=== PATIENT | female | born 1960 | race Caucasian/White ===

== ENCOUNTER → 2020-10-22 14:39 | Outpatient (CLI) | payer MEDICAID, SELFPAY ==
--- NOTE | 2020-10-22 14:44 | CT_ITS ---
STUDY: CT RIGHT LOWER EXTREMITY REASON FOR EXAM: Right knee osteoarthritis, surgical planning. TECHNIQUE: Transaxial CT imaging of the lower extremity was performed. Coronal and sagittal images were reformatted. Individualized dose optimization techniques were used for this CT. COMPARISON: None. FINDINGS: Knee: There are marginal osteophytes and moderately severe joint space narrowing of the medial femorotibial compartment (coronal reconstructions 28, 29). There are marginal osteophytes of the lateral femorotibial compartment without joint space narrowing. There are marginal osteophytes of the patellofemoral compartment without joint space narrowing. There are mild degenerative changes of the proximal tibiofibular articulation (coronal reconstruction 45). There is a small joint effusion. The quadriceps tendon is grossly normal. The patellar tendon is grossly normal. Normal Hoffa''s fat pad. There is a small popliteal cyst (sagittal reconstructions 37-39). There is a small ossification at the medial aspect of the medial femorotibial compartment (coronal reconstruction 31). There is a small ossification at the posterior aspect of the fibular head (sagittal reconstructions 14). Hip: There is right hip arthrosis with marginal osteophytes of the femoral head and joint space narrowing (coronal reconstruction 67). There is an os acetabula. Ankle: There is an osteochondral lesion of the medial talar dome (sagittal construction 42; coronal reconstructions 16, 17). Normal posterior subtalar articulation. There is a small posterior calcaneal enthesophyte. CT/Extremity Lower without Contra IMPRESSION: Advanced osteoarthritis of the medial femorotibial compartment. Small right knee joint effusion and small popliteal cyst. Electronically Signed: Jin Solano MD at 14:40 EDT Tel , Service support ,
== END ==
PROVIDERS: PCP Physician Assistant; Referring Provider Orthopaedic Surgery; Visit Provider Orthopaedic Surgery
DX: M17.11 Unilateral primary osteoarthritis, right knee (principal)
CPT/HCPCS: 73700

== ENCOUNTER 2020-11-16 05:14 | Day surgery (SDC) | payer MEDICAID, SELFPAY ==
--- NOTE | 2020-11-09 13:12 | EKG12_ITS ---
Test Reason : PRE OP Blood Pressure : / mmHG Vent. Rate : 080 BPM Atrial Rate : 080 BPM P-R Int : 156 ms QRS Dur : 072 ms QT Int : 358 ms P-R-T Axes : 073 062 069 degrees QTc Int : 412 ms Normal sinus rhythm Normal ECG Confirmed by SILVIANO MENA, ZOYA ([id number]), city editor NENO ANNA ([id number]) on 11/11/2020 7:36:01 AM Referred By: Seamus Qureshi Confirmed By:ZOYA SHORE MD
[2020-11-09 14:28] LABS: Hematocrit 42.2 % (37-47); Hemoglobin 13.9 g/dL (12.0-15.0); Mean Corp Hgb Conc 32.9 g/dL (32-36); Mean Corpuscular Hgb 27.8 pg (27.0-32.0); Mean Corpuscular Volume 84.4 fL (81-99); Mean Platelet Vol. 10.4 fl (6.2-12.0); Platelet Count 295 K/mm3 (150-450); RBC Distribution Width CV 13.6 % (11.6-14.6); RBC Distribution Width SD 41.9 fl (35.1-43.9); White Blood Count 7.3 K/mm3 (4.4-11.0)
[2020-11-09 14:42] LABS: International Normalized Ratio 1.1; Prothrombin Time (Protime)PT. 13.5 SECONDS (11.7-14.9)
[2020-11-09 14:43] LABS: Partial Thromboplast Time 29.7 Seconds (24.1-36.2)
[2020-11-09 14:51] LABS: Anion Gap 4 (5-15); BUN 11 mg/dL (7-18); BUN/Creat Ratio 11.3 RATIO (10-20); Calcium,Total 9.3 mg/dL (8.5-10.1); Chloride 107 mmol/L (98-107); Creatinine, Serum 0.97 mg/dL (0.55-1.02); EST Glomerular Filtration Rate 61 mL/min (>60); Est Glom Filt Rate - Afr Amer 74 mL/min (>60); Glucose 106 mg/dL (74-106); Sodium Level 137 mmol/L (136-145)
[2020-11-09 14:57] LABS: AST(SGOT) 21 U/L (15-37); Alanine Aminotransfer ALT/SGPT 27 U/L (13-56); Albumin, Serum 3.6 g/dL (3.2-5.0); Alkaline Phosphatase 87 U/L (45-117); Bilirubin, Direct 0.08 mg/dL (0.00-0.30); Globulin 3.5 g/dL (2.2-4.2); Magnesium 2.2 mg/dL (1.6-2.6); Protein, Total 7.1 g/dL (6.4-8.2)
[2020-11-16] VITALS (14 sets, daily range): BP systolic 74–140; BP diastolic 50–79; PULSE 67–100; RESP 16–18; TEMP 36.3–37.3; O2SAT 94–100; BMI 27.4
[2020-11-16] MEDS: Acetaminophen 500 MG Tablet 1000 MG PO ×2 (06:13→14:13)
[2020-11-16] MEDS: Gabapentin 600 MG Tablet PO (06:13)
[2020-11-16] MEDS: Lactated Ringers 1,000 ML 100 ML IV (06:15)
[2020-11-16 06:35] LABS: Bedside Glucose 94 mg/dL (70-110)
--- NOTE | 2020-11-16 07:30 | KNEE_PTH ---
PATIENT: DOLLY FERRARI LOC: [facility] [place] U#:[id number] AGE/SX: 60/F ROOM: RE11/16/[address]: Dr. Seamsu Qureshi DO : 1960 BED: DIS: 11/16/2020 SPEC #: [id number] RECD: 11/16/20 10:00 STATUS: ZEYAD REKate #: [id number] JHON: 11/16/20 07:[address]: Seamus Qureshi DEPT: SURGICAL PATHOLOGY RECD BY: Earline Valente ENTERED: 11/16/20 13:03 SP TYPE: TOTAL KNEE OTHR DR: KAYCEE Camacho Tissues: Knee, NOS Procedures: Decalcification bone/plaque Surgery Specimen Level IV HEADER OPERATION: ERAS, total knee replacement robotic arm assist PRE-OP DIAGNOSIS: Right knee osteoarthritis TISSUE SUBMITTED: Debrided bone and tissue right knee MICROSCOPIC DIAGNOSIS Bone and tissue, right knee, total knee replacement/resection: Pieces of bone with degenerative osteoarthritic changes. Fibroadipose tissue, fibroconnective tissue and reactive synovial tissue. DEVIN:rogerio 11/18/2020 MICROSCOPIC DESCRIPTION Slides are reviewed. GROSS DESCRIPTION Received is one container designated right knee debrided bone and tissue. The specimen consists of multiple fragments of flores-yellow bone measuring in aggregate 11 x 10 x 3 cm. Also in the specimen container are multiple fragments of yellow-white soft tissue measuring in aggregate 4 x 3 x 1.5 cm. A number of bony fragments contain articular surfaces consistent with tibial plateau and femoral condyle and displaying prominent osteophyte formation, eburnation and bone erosion. Atg Java Developer sections are submitted in two cassettes as follows: 1 - soft tissue, 2 - bone after decalcification. / DEVIN:rogerio 11/16/20 TC:5 [facility]: [id number], [id number]
[2020-11-16] MEDS: Cefazolin 2 GM in 0.9% Normal Saline 100 ML IV (07:45)
--- NOTE | 2020-11-16 09:04 | PCM.OPRPT ---
Report of Operation Date of Procedure: 11/16/20 Pre-Operative Diagnosis: OA with varus deformity right knee Post-Operative Diagnosis: same Surgery/Procedure Performed:: Right TKR teletype installer: Lincoln Cruz Type of Anesthesia:: Spinal Anesthesiologist: Nura Torres Specimen's removed: bone Estimated Blood Loss (mL): 20 cc Fluids Replaced: 1000 cc crystalloid - Admit VTE Documentation VTE Present on Admission: No VTE Mechan Device Prophylaxis: SCD's, Thigh High KATELYN Hose VTE Pharm Prophylaxis ordered?: Yes
[2020-11-16] MEDS: Lactated Ringers 1,000 ML 999 ML IV (09:45)
--- NOTE | 2020-11-16 10:00 | RAD_ITS ---
STUDY: X-RAY - RIGHT KNEE REASON FOR EXAM: Female, 60 years old. post op -- AP and Lateral xray of operative knee in PACU TECHNIQUE: 2 view(s) of the knee. COMPARISON: None. FINDINGS: Status post total knee arthroplasty. Surgical hardware intact/well aligned. No acute complications. Postoperative soft tissues with staple line. RAD/Knee 1 or 2 Views IMPRESSION: Uncomplicated right knee arthroplasty Electronically Signed: Jayden Carrillo DO at 11:23 EDT Tel , Service support ,
[2020-11-16 10:18] LABS: Hematocrit 37.9 % (37-47); Hemoglobin 12.1 g/dL (12.0-15.0); Mean Corp Hgb Conc 31.9 g/dL (32-36); Mean Corpuscular Hgb 27.6 pg (27.0-32.0); Mean Corpuscular Volume 86.5 fL (81-99); Platelet Count 253 K/mm3 (150-450); RBC Distribution Width CV 13.2 % (11.6-14.6); RBC Distribution Width SD 41.7 fl (35.1-43.9); Red Blood Count 4.38 M/mm3 (4.2-5.4); White Blood Count 7.3 K/mm3 (4.4-11.0)
[2020-11-16 10:34] LABS: Anion Gap 4 (5-15); BUN 7 mg/dL (7-18); BUN/Creat Ratio 10.2 RATIO (10-20); Calcium,Total 8.3 mg/dL (8.5-10.1); Chloride 108 mmol/L (98-107); Creatinine, Serum 0.68 mg/dL (0.55-1.02); EST Glomerular Filtration Rate 92 mL/min (>60); Est Glom Filt Rate - Afr Amer 112 mL/min (>60); Estimated Creatinine Clearance 74.07 ml/min; Glucose 140 mg/dL (74-106); Potassium 3.9 mmol/L (3.5-5.1); Sodium Level 139 mmol/L (136-145)
[2020-11-16 10:35] LABS: Bedside Glucose 155 mg/dL (70-110)
[2020-11-16] MEDS: Lactated Ringers 1,000 ML 125 ML IV (10:48)
[2020-11-16] MEDS: Cefazolin 1 GM/50 ML BAG IV (14:13)
== END 2020-11-16 15:51 | disposition home or self-care (01) ==
LOC: SDC 05:15 → AC 05:15
PROVIDERS: Anesthesiology; PCP Physician Assistant; Referring Provider Orthopaedic Surgery; Visit Provider Orthopaedic Surgery
PROC: 0SRC0JZ Replacement of Right Knee Joint with Synthetic Substitute, Open Approach (ICD-10-PCS; CPT 27447; principal; 2020-11-16 07:00)
DX: M17.11 Unilateral primary osteoarthritis, right knee (principal); M21.161 Varus deformity, not elsewhere classified, right knee; F32.9 Major depressive disorder, single episode, unspecified; F41.9 Anxiety disorder, unspecified; F12.20 Cannabis dependence, uncomplicated
CPT/HCPCS: 27447; 36415; 73560; 80048; 80076; 82962; 83735; 85027; 85610; 85730; 87081; 87426; 88305; 88311; 93005; 97162; C1776; C9803; J7120; J2405